=== PATIENT | female | born 1970 | race Caucasian/White ===

== ENCOUNTER 2016-08-20 23:09 | Observation (INO) | payer OTHER ==
--- NOTE | ~2016-08-20 | CO ---
Unit #: [id number] #: [id number] Patient: WILFREDO DAILY [id number] [address] [place], [place] [address] [id number] I MR#: [id number] NAME: WILFREDO DAILY. ROOM: 57 Age: 46 Sex: F Admission Date: 08/21/2016 : 1970 Attending Physician: Juan Manuel Bourgeois M.D. CONSULTATION REPORT REASON FOR CONSULTATION Seizure or syncope. PATIENT IDENTIFICATION This is a 46-year-old, right-handed, white female, who was admitted to room 577 at [facility]. SOURCE OF INFORMATION The patient. PROBLEM LIST 1. She was admitted for atypical chest pain. 2. Syncope and loss of consciousness. 3. Falls. 4. She has had left arm splint and left chin stitches and passing out episode. 5. Dizziness. 6. Possible UTI. 7. Seizure disorder. She sees Dr. Adan in [place]. 8. Behavior problems. 9. Thyroid disease. 10. History of pneumonia. 11. Tobacco abuse. 12. History of alcohol abuse. HISTORY OF PRESENT ILLNESS This is a 46-year-old, right-handed, white female, who was actually admitted because she was having some chest pain and some questionable dizziness. So, she is having evaluation done, but she told them that she had a passing out episode and the patient has a history of seizure. She sees Dr. Adan in [place]. She has not had a seizure in 5 years. She says whenever she takes her medication, she does not have seizure, but this time the problem was that she also was undergoing stress and she said that if she goes through significant stress, she may have a seizure. We still do not know her dose. It looks like she is taking 97.2 mg. phenobarbital level was not checked. Urine drug screen is positive for benzodiazepines, barbiturates and tricyclics and that all may be secondary to medication and that falls on urine drug screen that was done about a couple of days ago because I believe she may have come here to the emergency room. Her epilepsy is in control. No other neurologic issue. Unit #: [id number] #: [id number] Patient: WILFREDO DAILY PAST MEDICAL HISTORY As discussed above. PAST SURGICAL HISTORY , thyroid gland problem, splenectomy. ALLERGIES Sulfa. HOME MEDICATIONS Phenobarbital 97.2 mg p.o. b.i.d., Klonopin 1 mg p.o. t.i.d., Zoloft 50 mg daily, Neurontin 300 mg p.o. t.i.d., amitriptyline 25 mg p.o. b.i.d., Imitrex 100 mg p.o. daily if needed, Synthroid 0.05 mg p.o. daily. FAMILY HISTORY Noncontributory to the present condition. SOCIAL HISTORY Per the records, she is a . She is about a pack a day tobacco user and she does acknowledge use of alcohol. She denies use of drugs. REVIEW OF SYSTEMS Mostly as discussed in history of present illness. CONSTITUTIONAL: No weight issues, fever, chills, rigor, or sweats. HEENT: No headaches. No double vision, earache, runny nose, or sore throat. CARDIOVASCULAR: No chest pain, clubbing, cyanosis, orthopnea, or palpitation. PULMONARY: No shortness of air, cough, or expectoration. GI: No nausea, vomiting, diarrhea, or constipation. : No genitourinary symptoms. EXTREMITIES: No extremity problem. No back problem. PSYCHIATRIC: As discussed. NEUROLOGIC: Questionable epilepsy and may be nonepileptic event. No other hematologic, dermatologic, or endocrine issues known to me. PHYSICAL EXAMINATION VITAL SIGNS: Temperature 97.8, pulse 80, respirations 16, blood pressure 120/76, pain was 4/10, O2 saturations are 98%, weight of 101 pounds, BMI was 15. Neurological: The patient is awake, alert, oriented x3. Has normal speech. Cranial nerve examination demonstrates full laura of vision to confrontation. Eye movements are conjugate. I did not see any ptosis. I did not see any nystagmus. Extraocular movements are intact. Sensation on the face and scalp are normal. Strength of muscles of facial expression normal. Hearing seemed to be intact bilaterally. Tongue was midline. Uvula was midline. Palate elevation was normal. Head turning and shoulder shrugs were unremarkable. Motor examination demonstrated normal bulk, tone. Strength was essentially 5-/5 all over except she has had left wrist splint because of the fall and wrist injury. Sensory examination is intact for soft touch and pain sensation. No extinction was seen. Romberg was not evaluated. Unit #: [id number] #: [id number] Patient: WILFREDO DAILY Gait examination was deferred. I could not get any reflexes. Toes are equivocal. Coordination was normal. DIAGNOSTIC STUDIES Labs and imaging studies were reviewed. IMAGING STUDIES: Head CT was unremarkable. IMPRESSION 1. History of epilepsy. 2. History of possibility of nonepileptic events. 3. Fall. 4. She is stable right now. She is not seizing. I am not going to change any medication. She already has an outpatient neurologist, resume the medication and follow up with outpatient neurologist. These may be true epileptic and nonepileptic events. Nothing else to be changed or done per Neurology. Loss of consciousness precautions apply and the rest is after followup with her primary neurologist. Dictated by... Rupinder Silvestre/oxana TD: 08/22/2016 00:08 JOB #: [id number] CONSULTATION REPORT X Boyd Diego MD X CONSULTATION REPORT
--- NOTE | ~2016-08-20 | DS ---
Unit #: [id number] #: [id number] Patient: WILFREDO DAILY [id number] [address] [place], [place] [address] [id number] I MR#: [id number] NAME: WILFREDO DAILY. ROOM: 577 Age: 46 Sex: F Admission Date: 08/21/2016 : 1970 Discharge Date: 08/21/2016 Attending Physician: Juan Manuel Bourgeois M.D. Primary Care Physician: No Primary Care Physician DISCHARGE SUMMARY DISCHARGE DIAGNOSES 1. Atypical chest pain. 2. Syncope/near syncope. 3. Urinary tract infection. 4. Seizure disorder. 5. Pseudoseizure. 6. Skin laceration. 7. Tobaccoism. 8. Alcohol use. PROCEDURES PERFORMED The patient had Lexiscan Cardiolite stress test which was reportedly normal by Dr. Cisneros. Full detailed report is pending. The patient had a two-dimensional echocardiogram that was reportedly normal per Dr. Cisneros. Full detailed report is pending. 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 She has never had myocardial infarction, cardiac catheterization, echo or stress test in the past. Her past medical history includes seizure disorder, thyroid disease, a history of pneumonia in 12/2015 and tobaccoism. The patient presented to the emergency department after having one episode of dizziness on 08/20/2016. She states she standing and slowly walking into another room. She did not lose consciousness at this time. She denied any shortness of air or chest pain. However, on Thursday, the patient reported that she had a syncopal episode where she lost consciousness. She believes she lost consciousness for a few seconds. She did not have loss of bowel or bladder control at that time. She said she did have some associated dizziness and three sharp chest pains on the right side of her breast bone that quickly radiated to her back and she did have some nausea with that. For that syncopal episode she did report to the emergency room, where she had stitches placed in her chin and now has a splint on her left forearm. Orthostatic blood pressures were done on the patient lying. She is 120/80, sitting is 112/76 and standing is 114/77. She did receive a liter of fluids. The patient did undergo a Lexiscan Cardiolite stress test which was normal. She also had a two-dimensional echocardiogram which is reportedly normal. The patient's troponins were negative. The patient's urinalysis did show trace leukocyte esterase. The patient will be treated with 1 g of Rocephin and will be sent home with Cipro. I have discussed this case with Dr. Cisneros and he is agreeable the patient is stable for discharge. Unit #: [id number] #: [id number] Patient: WILFREDO DAILY DISPOSITION The patient will be discharged home after she receives her Rocephin. FOLLOWUP 1. The patient is to follow up with Dr. Bourgeois in four to six weeks regarding event monitor and possible tilt table stress test. I have called [facility]'s office and an event monitor will be arranged for the patient. 2. The patient is to follow up with her primary care provider within the week. 3. The patient is to follow up with her own neurologist in [place] in one to two weeks. DIET Healthy heart diet. ACTIVITY As tolerated. DISCHARGE MEDICATIONS 1. Cipro 500 mg p.o. times 3 days. 2. Neurontin 300 mg p.o. t.i.d. 3. Amitriptyline 25 mg p.o. b.i.d. 4. Zoloft 50 mg p.o. daily. 5. Phenobarbital 97.2 mg p.o. b.i.d. 6. Klonopin 1 mg p.o. t.i.d. 7. Imitrex 100 mg p.o. daily. 8. Synthroid 0.05 mcg p.o. daily. The patient is to seek medical attention or return to the emergency room if signs or symptoms worsen. Dictated by... Hanna Mejía A.P.R.N. for Remi Cisneros M.D. AM/sarah TD: 08/21/2016 16:12 JOB #: [id number] DISCHARGE SUMMARY X Hanna Mejía APRN X DISCHARGE SUMMARY
--- NOTE | ~2016-08-20 | DS ---
Unit #: [id number] #: [id number] Patient: WILFREDO DAILY [id number] [address] [address] [id number] I MR#: [id number] NAME: WILFREDO DAILY ROOM: [facility] Age: 46 Sex: F Admission Date: 08/21/2016 : 1970 Discharge Date: Attending Physician: Juan Manuel Bourgeois M.D. Primary Care Physician: No Primary Care Physician DISCHARGE SUMMARY ADDENDUM Please note neurology was also consulted for this patient. They have recommended that the patient be continued on her usual medications. She can follow up with her neurologist at time of discharge. CT scan of the head was negative. Dictated by... Hanna Mejía A.P.R.N. for Remi Cisneros M.D. AM/jessy TD: 08/21/2016 16:22 JOB #: [id number] DISCHARGE SUMMARY X Hanna Mejía APRN X DISCHARGE SUMMARY
--- NOTE | ~2016-08-20 | CT71 ---
[facility] A Service of [facility] RADIOLOGY TEXT RESULTS PATIENT: WILFREDO DAILY LOCATION: [facility] 57- : [birth year] UNIT #: [id number] AGE: [address]: Juan Manuel Bourgeois MD SEX: F ORDER DR: [id number] [facility] [address]. [place], [place] [address] [id number] I MR#: [id number] Acc #: [id number] NAME: WILFREDO DAILY. : 1970 SEX: F STUDY DATE/TIME: 08/21/2016 0:21 UNIT: [facility] ROOM: [facility] STUDY DESCRIPTION: CT Head Wo Contrast Attending Physician: Juan Manuel Bourgeois M.D. Ordering Physician: Tony Holt D.O. Primary Care Physician: Primary Care Physician No MEDICAL IMAGING REPORT This report is preliminary unless electronic signature is present EXAM CT brain without contrast HISTORY Dizzy for 2 days. Fell and hit head 2 days ago. Headache. Confusion. TECHNIQUE This CT exam was performed with one or more of the following radiation dose reduction techniques: automatic exposure control, adjustment of mA and/or kV according to patient size, and iterative reconstruction. FINDINGS Axial noncontrast images were obtained from the skull base to the vertex. Ventricular size and configuration are normal. There is no evidence of acute infarct or hemorrhage. There are no extra-axial fluid collections. No mass lesion or mass effect is seen. There are no skull fractures. IMPRESSION Normal noncontrast head CT. Dictated by... Girma Yip M.D. THIS IS AN ELECTRONICALLY VERIFIED REPORT Girma Yip M.D. at 08/21/2016 3:50 PM Marilia TD: 08/21/2016 09:07 JOB #: [id number] MEDICAL IMAGING REPORT COPY
--- NOTE | ~2016-08-20 | ST ---
Unit #: [id number] #: [id number] Patient: WILFREDO DAILY [id number] [address] [address] [id number] I MR#: [id number] NAME: WILFREDO DAILY. : 1970 SEX: F STUDY DATE/TIME: 08/21/2016 UNIT: [facility] ROOM: 577 STUDY DESCRIPTION: stress test Attending Physician: Juan Manuel Bourgeois M.D. Primary Care Physician: No Primary Care Physician CARDIOLOGY REPORT EXAM Stress test. FINDINGS Baseline EKG: Normal sinus rhythm. Nonspecific ST-T changes. Resting heart rate 78 per minute. Blood pressure 121/80. This 46-year-old patient received 0.4 mg of Lexiscan intravenously. During the test, no ischemic changes noted. No arrhythmias noted. Blood pressure was stable. INTERPRETATION 1. Nondiagnostic EKG during Lexiscan. 2. No arrhythmias noted. 3. Stable blood pressure during the test. 4. Correlate with the Cardiolite study. Dictated by... Rupinder Mejia/chucky TD: 08/22/2016 08:41 JOB #: [id number] CARDIOLOGY REPORT X Remi Cisneros MD CARDIOLOGY REPORT
--- NOTE | ~2016-08-20 | HP ---
Unit #: [id number] #: [id number] Patient: WILFREDO DAILY [id number] [address] [place], [place] [address] [id number] I MR#: [id number] NAME: WILFREDO DAILY. ROOM: 577 Age: 46 Sex: F Admission Date: 08/20/2016 : 1970 Attending Physician: Juan Manuel Bourgeois M.D. Primary Care Physician: No Primary Care Physician HISTORY AND PHYSICAL REASON FOR ADMISSION Syncope and dizziness. 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 She denies ever having a myocardial infarction, cardiac catheterization, an echo or a stress test. Her past medical history includes: Seizure disorder, fibroid disease, history of pneumonia in December 2015, and tobaccoism. The patient presented to the ER after having one episode of dizziness on August 20, 2016. She states she was standing and slowly walking into another room. She states she did not lose consciousness at this time. She denied any shortness of air or chest pain. However, on August 18, the patient reported that she had a syncopal episode where she lost consciousness. She believes she lost consciousness for a few seconds. She did not have loss of bowel or bladder control. At that time, she said she did have some associated lightheaded dizziness and had three sharp chest pains on the right side of her breast bone that were quick and radiated to her back. She did have some nausea. The pain resolved on its own. For that syncopal episode, she did present to an ER where she had stitches placed in her chin and she now has a splint on her left forearm. In the emergency department, the patient was given pain medicine, IV fluids, aspirin, and Toradol. EKG showed normal sinus rhythm at 82 beats per minute. Her point of care troponins were all less than 0.05 x4. Neurology has also been consulted because patient does have a history of seizure disorder. The patient was unable to tell me what type of home medications she takes. PAST MEDICAL HISTORY 1. Seizure disorder. 2. Thyroid disorder. 3. History of pneumonia in December 2015. 4. Falls. PAST SURGICAL HISTORY 1. Splenectomy. 2. Cholecystectomy. 3. x3. ALLERGIES Sulfa. Unit #: [id number] #: [id number] Patient: WILFREDO DAILY HOME MEDICATIONS Unknown at this time. I have asked nursing to call me when they obtain them. FAMILY HISTORY The patient reports that her mother has atrial fibrillation. SOCIAL HISTORY The patient reports that she smokes three-fourths to one pack of cigarettes per and that she smoked for over 30 years. She denies any alcohol or illicit drug abuse. She states that she is currently living with her mom and caring for her mother. She does not work. She does report that she has had some decreased p.o. intake. The patient denies any history of alcohol abuse; however, it is noted that her alcohol level was 88 in the emergency department. As well, she is positive for benzodiazepines, barbiturates, and TCA. REVIEW OF SYSTEMS CONSTITUTIONAL: The patient denies fever, endorses chills, endorses fatigue. HEENT: The patient denies sore throat, ear pain, runny nose. CARDIOVASCULAR: The patient endorses chest pain. Denies irregular rhythm or palpitations. CHEST: The patient endorses shortness of breath and cough. Denies hemoptysis. GASTROINTESTINAL: The patient endorses nausea. She denies vomiting, diarrhea, or chronic constipation or hematochezia. ENDOCRINE: Denies history of increased thirst, urination. No recent significant weight loss or gain. GENITOURINARY: Denies dysuria, frequency, or hematuria. SKIN: Denies any unusual rashes or lesions. HEMATOLOGIC: Denies any increased bleeding or bruising. MUSCULOSKELETAL: Denies any hot swollen joints. No generalized muscle pain. NEUROLOGIC: The patient denies any problems with speech or vision. No frequent severe headache. No numbness, tingling, or weakness in any extremity. Denies loss of bowel and bladder control. Endorses dizziness. PHYSICAL EXAMINATION GENERAL: The patient is a 46-year-old female who is awake, alert in no acute distress. VITAL SIGNS: Temperature 97.8, heart rate 80, respirations 16, blood pressure 120/76. HEENT: Head is atraumatic, normocephalic. Pupils equal, round, and reactive. Extraocular movements are intact. No discharge from ears or nares. NECK: Supple. Trachea is midline. CHEST: Lungs are clear to auscultation bilaterally. No wheezes, rales, rhonchi. CARDIOVASCULAR: S1, S2. Regular rate and rhythm. No murmurs, rubs, or gallops are appreciated. ABDOMEN: Soft, nontender, nondistended. Bowel sounds are positive in all four quadrants. SKIN: Appears to be warm, dry, and intact. No unusual rashes or lesions. She does have an abrasion on her chin which has stitches. She is also wearing a splint on her left forearm. EXTREMITIES: No clubbing, edema, or cyanosis. Unit #: [id number] #: [id number] Patient: WILFREDO DAILY NEUROLOGIC: The patient is alert and oriented x4. She is pleasant, conversant. No focal deficits. DIAGNOSTIC STUDIES LABORATORY: Troponins are less than 0.05 x4. Urinalysis shows trace leukocytes. Glucose 89, BUN 9, creatinine 0.4, sodium 137, potassium 3.6, chloride 100, CO2 of 28. AST 17, ALT 21, alkaline phosphatase 241. Please note, her alcohol level on August 18, 2016 is 88. D-dimer 349. White blood cells 8.6, hemoglobin 13.1, hematocrit 38.4, platelets 464,000. IMAGING: CT scan of her head is a normal noncontrast CT scan of her head. Chest x-ray shows no acute findings. CARDIOVASCULAR: EKG shows normal sinus rhythm with a rate of 82 beats per minute, possible LVH. ASSESSMENT 1. Chest pain, likely atypical. 2. Syncope with loss of consciousness on Thursday. 3. Falls. 4. Dizziness. 5. Possible urinary tract infection. 6. Seizure disorder. 7. Thyroid disease. 8. History of pneumonia in December 2015. 9. Tobaccoism. 10. Alcohol use. PLAN 1. Will orthostatics daily. 2. Will check a BMP, magnesium, TSH, lipid panel in the morning. 3. Will obtain a 2D echocardiogram for syncope. 4. Will obtain a Lexiscan Cardiolite stress test today. 5. I have asked nursing to call me with home medications. 6. Will send a urine culture. 7. Will give patient Rocephin 1 g IV x1. 8. Will do an EKG in the morning. 9. I have encouraged the patient to quit smoking. Dictated by Hanna Carole Mejía TD: 08/21/2016 13:57 JOB #: [id number] Unit #: [id number] #: [id number] Patient: LISA DAILYANTONIO Jackson HISTORY AND PHYSICAL X Hanna Mejía APRN X HISTORY AND PHYSICAL
--- NOTE | ~2016-08-20 | EKG ---
PATIENT: WILFREDO DAILY UNIT #: [id number] Ventricular Rate: 82 BPM Atrial Rate: 82 BPM P-R Interval: 150 ms QRS Duration: 90 ms Q-T Interval: 366 ms QTC Calculation(Bezet): 427 ms P Hartland: 57 degrees Calculated R Hartland: 74 degrees Calculated T Hartland: 80 degrees Diagnosis Line: Normal sinus rhythm Diagnosis Line: Possible Left atrial enlargement Diagnosis Line: Borderline ECG Diagnosis Line: When compared with ECG of 18-AUG-2016 23:16, Diagnosis Line: No significant change was found Diagnosis Line: Confirmed by RAMBO GUPTA MD ([id number]) on Diagnosis Line: 08/21/2016 12:57:12 PM INTERPRETING MD: ALONSO PARHAM
--- NOTE | ~2016-08-20 | CR72 ---
[facility] A Service of [facility] RADIOLOGY TEXT RESULTS PATIENT: WILFREDO DAILY LOCATION: [facility] 57- : 66 UNIT #: [id number] AGE: [address]: Juan Manuel Bourgeois MD SEX: F ORDER DR: [id number] [facility] [address]. [place], [place] [address] [id number] I MR#: [id number] Acc #: [id number] NAME: WILFREDO DAILY. : 1970 SEX: F STUDY DATE/TIME: 08/21/2016 1:41 UNIT: [facility] ROOM: [facility] STUDY DESCRIPTION: CR Chest Single View Portable Attending Physician: Juan Manuel Bourgeois M.D. Ordering Physician: Tony Holt D.O. Primary Care Physician: No Primary Care Physician MEDICAL IMAGING REPORT This report is preliminary unless electronic signature is present EXAM Portable chest. HISTORY Chest pain for 2 days. FINDINGS Hluwelntlh-uk-jzki cardiac enlargement. Pulmonary vascularity is normal. No airspace infiltrates or pleural effusions. Mild left lower thoracic curve. Minimal linear atelectasis or scarring in the lateral right mid lung. IMPRESSION No acute findings. Dictated by... Girma Yip M.D. THIS IS AN ELECTRONICALLY VERIFIED REPORT Girma Yip M.D. at 08/21/2016 3:52 PM DFL/alicia TD: 08/21/2016 09:30 JOB #: [id number] MEDICAL IMAGING REPORT COPY
--- NOTE | ~2016-08-20 | TH ---
Unit #: [id number] #: [id number] Patient: WILFREDO DAILY [id number] [address] [address] [id number] I MR#: [id number] NAME: WILFREDO DAILY. : 1970 SEX: F STUDY DATE/TIME: 08/21/2016 UNIT: [facility] ROOM: 577 STUDY DESCRIPTION: Cardiolite study Attending Physician: Juan Manuel Bourgeois M.D. Primary Care Physician: No Primary Care Physician CARDIOLOGY REPORT EXAM Cardiolite study. TECHNIQUE This 46-year-old patient received 0.4 mg of Lexiscan intravenously followed by 33 mCi of technetium 99 Cardiolite and images were obtained according to the standard SPECT protocol. For rest images, 10.41 mCi of Cardiolite was injected. Images were reviewed in both phases. FINDINGS Overall study quality is excellent. LV cavity size is normal. In both images, there is no lung activity. RV is normal. Rotating raw data showed no significant artifact, soft tissue attenuation, or GI uptake. Review of the SPECT images showed normal homogeneous radiotracer concentration throughout the myocardium in both the stress and rest images. Gated images showed a normal LV wall thickening and wall motion with an estimated LV ejection fraction of 61%. IMPRESSION Myocardial perfusion imaging is normal. No evidence of ischemia or infarct. Normal LV dimensions. Normal systolic LV function with an estimated LV ejection fraction of 61%. Dictated by... Rupinder Mejia/chucky TD: 08/22/2016 08:47 JOB #: [id number] CARDIOLOGY REPORT X Remi Cisneros MD CARDIOLOGY REPORT
[2016-08-20 23:01] LABS: BASOPHIL# 0.3 X10e3 (0-0.3); BASOPHIL% 4.4 % (0-2.5); EOSINOPHIL% 0.1 % (0.0-7.0); HEMATOCRIT 38.4 % (35.0-45.0); HEMOGLOBIN 13.1 gm/dL (12.0-16.0); LYMPHOCYTE# 3.4 X10e3 (1.0-3.5); LYMPHOCYTE% 50.5 % (17.0-45.0); MEAN CELL VOLUME 105.1 FL (83-96); MEAN CORPUSCULAR HEMOGLOBIN 35.9 PG (28-34); MEAN CORPUSCULAR HGB CONC 34.1 g/dL (30-36); MEAN PLATELET VOLUME 8.2 FL (6.5-11.5); MONOCYTE# 0.8 X10e3 (0-1.0); MONOCYTE% 11.2 % (3.0-12.0); NEUTROPHIL# 2.3 X10e3 (1.5-7.1); NEUTROPHIL% 33.8 % (40-75); PLATELET COUNT 464 X10e3 (140-420); RED BLOOD COUNT 3.66 X10e (3.90-5.30); RED CELL DISTRIBUTION WIDTH 14.9 % (11.0-15.5); WHITE BLOOD COUNT 6.8 X10e3 (4.0-10.5)
[2016-08-20 23:02] LABS: DIFF IND YES
[2016-08-20 23:16] LABS: ALBUMIN SERUM 4.3 g/dL (3.5-5.0); ALKALINE PHOSPHATASE 241 U/L (32-92); ALT (SGPT) 21 U/L (10-40); AST (SGOT) 17 U/L (10-42); BILIRUBIN, DIRECT 0.1 mg/dL (0.0-0.2); BILIRUBIN,INDIRECT 0.3 mg/dL (0.0-0.9); BILIRUBIN,TOTAL 0.4 mg/dL (0.2-2.0); BLOOD UREA NITROGEN 9 mg/dL (9-23); CALCIUM SERUM 9.2 mg/dL (8.4-10.2); CARBON DIOXIDE 28 mmol/L (22-31); CHLORIDE 100 mmol/L (100-111); CREATININE SERUM 0.4 mg/dL (0.6-1.4); GLOM FILT RATE Estimated ABOVE60 mL/min (>60); GLUCOSE FASTING 89 mg/dL (70-110); POTASSIUM 3.6 mmol/L (3.5-5.1); PROTEIN TOTAL SERUM 7.2 g/dL (6.0-8.3); SODIUM 137 mmol/L (135-145)
[2016-08-20 23:28] LABS: POC - CKMB <1.0 ng/mL (0.0-7.9); POC - TROPONIN <0.05 ng/mL (<=0.05)
[2016-08-20 23:35] LABS: PLATELET ESTIMATE NORMAL (NORMAL); SMUDGE CELLS 4 /100
[2016-08-21 01:45] LABS: POC - CKMB <1.0 ng/mL (0.0-7.9); POC - TROPONIN <0.05 ng/mL (<=0.05)
[2016-08-21] MEDS ORDERED: KLONOPIN1 MG PO (10:57)
[2016-08-21] MEDS ORDERED: PHENOBARBITAL97.2 MG PO (10:57)
[2016-08-21] MEDS ORDERED: AMITRIPTYLINE H25 MG PO (10:58)
[2016-08-21] MEDS ORDERED: NEURONTIN300 MG PO (10:58)
[2016-08-21] MEDS ORDERED: ZOLOFT50 MG PO (10:58)
[2016-08-21] MEDS ORDERED: IMITREX PO (10:59)
[2016-08-21] MEDS ORDERED: SYNTHROID0.05 MG PO (10:59)
[2016-08-21] MEDS ORDERED: CIPRO PO (15:40)
== END 2016-08-21 17:58 ==
LOC: CED 23:09 → CEDOF 08-21 03:02 → C5C 08-21 08:54
PROVIDERS: Emergency Medicine
DX: R07.89 Other chest pain (principal); R55 Syncope and collapse; I35.1 Nonrheumatic aortic (valve) insufficiency; N39.0 Urinary tract infection, site not specified; G40.909 Epilepsy, unspecified, not intractable, without status epilepticus; T14.8 Other injury of unspecified body region; F17.200 Nicotine dependence, unspecified, uncomplicated; Z72.89 Other problems related to lifestyle; Z91.81 History of falling; E07.9 Disorder of thyroid, unspecified; Z79.899 Other long term (current) drug therapy; R46.89 Other symptoms and signs involving appearance and behavior; Z87.01 Personal history of pneumonia (recurrent); Z84.89 Family history of other specified conditions; Z90.49 Acquired absence of other specified parts of digestive tract; Z88.2 Allergy status to sulfonamides
CPT/HCPCS: 36415; 70450; 71010; 78452; 80048; 80076; 82553; 82947; 84484; 85025; 85379; 93005; 93017; 93306; 96360; 96361; 96375; 99285; A9500; G0378; J0696; J1885; J2785

== ENCOUNTER 2016-10-15 18:13 | Emergency (ER) | payer OTHER ==
[~2016-10-15 18:13] MED LIST: AMITRIPTYLINE H25 MG PO; CIPRO PO; IMITREX PO; KLONOPIN1 MG PO; NEURONTIN300 MG PO; PHENOBARBITAL97.2 MG PO; SYNTHROID0.05 MG PO; ZOLOFT50 MG PO
== END 2016-10-15 18:15 | disposition home or self-care (01) ==
LOC: CFTX 18:13
DX: R11.0 Nausea (principal); G40.909 Epilepsy, unspecified, not intractable, without status epilepticus; F17.210 Nicotine dependence, cigarettes, uncomplicated; Z90.49 Acquired absence of other specified parts of digestive tract; Z90.81 Acquired absence of spleen; Z98.890 Other specified postprocedural states
CPT/HCPCS: 99282